=== PATIENT | male | born 1990 | race Caucasian/White ===

== ENCOUNTER 2018-11-20 09:33 | Outpatient (CLI) | payer OTHER | END 2018-11-20 09:34 | disposition home or self-care (01) | LOC: C.LAB 09:33 | DX: Z00.00 Encounter for general adult medical examination without abnormal findings (principal); I10 Essential (primary) hypertension ==

== ENCOUNTER 2018-11-29 08:21 | Outpatient (CLI) | payer SELFPAY | END 2018-11-29 08:22 | disposition home or self-care (01) | LOC: C.USIC 08:21 ==